=== PATIENT | male | born 1965 | race American Indian/Alaskan Native ===

== ENCOUNTER 2020-05-16 11:27 | Outpatient (CLI) | payer BC ==
--- NOTE | 2020-05-16 12:42 | XRay Report ---
BILATERAL KNEES 8 VIEWS INDICATION / CLINICAL INFORMATION: BILATERAL KNEE PAIN.. COMPARISON: None available. FINDINGS: Moderate medial joint space narrowing on left. No other significant skeletal abnormality. Signer Name: Tristen Sargent MD FACR Signed: 05/16/2020 12:37 PM Workstation Name: [id number]
== END 2020-05-16 11:28 | disposition home or self-care (01) ==
LOC: XRAY 11:27
PROVIDERS: ATTEND Internal Medicine
DX: M17.12 Unilateral primary osteoarthritis, left knee (principal); M25.561 Pain in right knee